=== PATIENT | male | born 1955 | race Caucasian/White ===

== ENCOUNTER 2017-04-10 08:19 | Emergency (ER) | payer BC ==
--- NOTE | 2017-04-10 13:15 | EDM.PDOC ---
ED HPI GENERAL MEDICAL PROBLEM - General Chief Complaint: Lower Extremity Injury/Pain Stated Complaint: KNEE PAIN Time Seen by Provider: 04/10/17 09:05 Source of Information: Reports: Patient, RN History Limitations: Reports: No Limitations - History of Present Illness INITIAL COMMENTS - FREE TEXT/NARRATIVE: 905: This 61 year male presents to ER with lower right knee pain. States he is here for vacation and has been fishing. States tossing around in the boat for a couple days and upon awaking this am, noted strong pain to inner right knee. States no injury, other than "tossing around in the fishboat". States today he didn't go fishing and is just resting. States history of surgery to achilles tendon to this leg in the past, no problems with this. Pt states pain to inner knee with palpation. Pain is worse with standing. Thought he felt something give out this am. No pain with movement of hip. Increase pain with flexing knee, but total range of motion noted. Good range of motion to ankle, as well. Patella is in place and no pain to patella. Slight swelling and pain with palpation to inner side of right knee. No bruising noted and no erythema. 9:20 Instructed to elevate extremity, rest, use ice and use neoprene immobilizer and may use Ibuprofen 800 mg tid with food or Aleve 220 mg PO tid with food for pain. Pt states understanding. Return to PCP within 4 weeks if pain persists or worsens. Onset: Today Onset Date: 04/10/17 Duration: Getting Worse Location: Reports: Lower Extremity, Right Severity: Moderate - Related Data Allergies Allergy/AdvReac Type Severity Reaction Status Date / Time No Known Allergies Allergy Verified 04/10/17 11:58 Home Meds: Home Meds Citalopram [Citalopram HBr] 30 mg PO DAILY 04/10/17 [History] Lansoprazole [Prevacid] 30 mg PO DAILY 04/10/17 [History] Loratadine [Non-Drowsy Allergy] 30 mg PO DAILY 04/10/17 [History] Zolpidem Tartrate [Zolpidem Tartrate] 5 mg PO DAILY 04/10/17 [History] busPIRone [Buspar] 7.5 mg PO TID 04/10/17 [History] Review of Systems - Review of Systems Review Of Systems: See Below Constitutional: Denies: Chills, Fever Musculoskeletal: Reports: Joint Pain. Denies: Leg Pain, Foot Pain Skin: Denies: Bruising, Erythema, Change in Color Neurological: Reports: Difficulty Walking. Denies: Confusion, Headache ED EXAM, GENERAL - Physical Exam Exam: See Below Exam Limited By: No Limitations General Appearance: Alert, No Apparent Distress Cardiovascular: Normal Peripheral Pulses, No Edema Extremities: Normal Range of Motion, No Pedal Edema, Normal Capillary Refill, Pedal Edema. No: Increased Warmth (Pain to left knee with palpation and with flexing knee. Mild swelling to medial side of knee.), Redness Neurological: Alert, Oriented, Normal Cognition Psychiatric: Normal Affect Skin Exam: Warm, Dry, Normal Color Departure - Departure Time of Disposition: 09:20 Disposition: Home, Self-Care 01 Condition: Good Clinical Impression: Knee effusion, left - Discharge Information Instructions: Knee Pain Referrals: PCP,None [Primary Care Provider] -
== END 2017-04-10 09:20 | disposition home or self-care (01) ==
LOC: LB.ED 08:19
DX: M25.462 Effusion, left knee (principal); Z79.899 Other long term (current) drug therapy
CPT/HCPCS: 99283